=== PATIENT | male | born 2000 | race Caucasian/White ===

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

== ENCOUNTER 2023-02-13 12:05 | Outpatient (CLI) | payer BC, SELFPAY ==
--- NOTE | ~2023-02-13 | XR_ITS ---
EXAMINATION: XR chest 2V DATE: 02/13/2023 12:51 INDICATION: Cough. Shortness of breath. Wheezing. TECHNIQUE: Frontal and lateral views of the chest were obtained on 3 radiographs. COMPARISON: Chest 2 views 11/03/15 FINDINGS: There is no pneumonia, pleural effusion, or pneumothorax. The heart size is normal. IMPRESSION: 1. No acute cardiopulmonary disease. Reviewed, dictated and finalized at location A. TERIA TABLE ATTENDANT
== END 2023-02-13 12:06 | disposition home or self-care (01) ==
PROVIDERS: PCP Internal Medicine; Visit Provider Internal Medicine
DX: R05.9 Cough, unspecified (principal)
CPT/HCPCS: 71046